=== PATIENT | male | born 1985 | race Caucasian/White ===

== ENCOUNTER 2023-10-06 07:49 | Emergency (ER) | payer SELFPAY ==
[~2023-10-06] VITALS: Ht 177.8 cm; Wt 149.2 kg
[2023-10-06 07:49] VITALS: BP 147/103; PULSE 91; RESP 18; TEMP 97.9; O2SAT 96
[~2023-10-06 07:49] MED LIST: ASPI-929 PO; CARV3.122 PO; LOSA-399 PO; [UNRECOGNIZED DRUG - CODE] PO
[2023-10-06] MEDS ORDERED: ZOFRAN ONE (08:27)
[2023-10-06] MEDS ORDERED: TORADOL ONE (08:27)
[2023-10-06] MEDS ORDERED: NS 1000ML 1,000 ML ONE (08:27)
[2023-10-06] MEDS: TORADOL IV STA (08:29)
[2023-10-06] MEDS: NS 1000ML 1,000 ML IV STA (08:29)
[2023-10-06] MEDS: ZOFRAN IV STA (08:30)
[2023-10-06 08:35] LABS: BASOPHIL % 0.1 % (0.0-0.2); EOSINOPHIL # 0.1 10^3/uL (0.0-0.2); EOSINOPHIL % 0.7 % (0.0-5.0); HEMATOCRIT(ML) 44.8 % (37.0-53.0); HEMOGLOBIN 15.9 g/dL (13.9-16.3); LYMPHOCYTES # 1.89 10^3/uL1 (1.0-4.8); LYMPHOCYTES % 20.2 % (24.0-44.0); MEAN CORP HGB 30.1 pg (26-34); MEAN CORP HGB CONCENTRATION 35.5 g/dL (33-36.5); MEAN CORP VOLUME 84.8 fL (78-100); MONOCYTES # 0.6 10^3/uL (0.3-0.8); MONOCYTES % 6.5 % (5.0-12.0); NEUTROPHIL # 6.8 10^3/uL (1.8-7.7); NEUTROPHILS % 72.4 % (41.0-85.0); PLATELET COUNT 245 10^3/uL (150-400); RED BLOOD CELL 5.28 10^6/uL (4.50-5.90); RED CELL DISTRIBUTION WIDTH 11.8 % (11.5-14.5); WHITE BLOOD CELL 9.4 10^3/uL (4.5-11.0)
[2023-10-06 08:36] LABS: +ADD MANUAL DIFF(NO CHRG) NO
[2023-10-06 08:42] LABS: BILIRUBIN,URINE 2+ (NEGATIVE); LEUKOCYTE ESTERASE ,URINE NEGATIVE (NEGATIVE); NITRATE,URINE POSITIVE (NEGATIVE); PH,URINE 5.5 (4.5-8.0); UROBILINOGEN,URINE >=8.0 E.U./dL (0.2)
[2023-10-06 08:51] LABS: ALBUMIN(ML) 3.6 g/dL (3.4-5.0); ANION GAP 16.2; BUN/CREATININE RATIO 14.28 (10.0-20.0); CARBON DIOXIDE 22.9 mmol/L (20.0-32); CREATININE SERUM 1.26 mg/dL (0.59-1.40); EST GFR, NON-AA 63.7 (>/=60); POTASSIUM 3.1 mmol/L (3.6-5.2)
[2023-10-06 08:51] LABS: APPEARANCE,URINE CLEAR; UA COLOR ORANGE
[2023-10-06 09:09] VITALS: BP 155/75; PULSE 71; RESP 18; TEMP 97.9; O2SAT 96
[2023-10-06 09:26] VITALS: BP 148/86; PULSE 77; RESP 18; TEMP 97.9; O2SAT 93
[2023-10-06] MEDS ORDERED: KLOR-CON 10 PO ONE (09:46)
[2023-10-06] MEDS: KLOR-CON 10 PO STA (09:47)
== END 2023-10-06 09:47 | disposition home or self-care (01) ==
LOC: ER 07:49
DX: N39.0 Urinary tract infection, site not specified (principal); N20.0 Calculus of kidney; R11.2 Nausea with vomiting, unspecified; E86.0 Dehydration; E11.9 Type 2 diabetes mellitus without complications
CPT/HCPCS: 99285; 74176; 96374; 96361; 96375; 87086; 80053; 85025; 82948; 36415; 81001; 83690; J7030; J3490; J2405; J1885